=== PATIENT | female | born 1980 | race Caucasian/White ===

== ENCOUNTER 2018-11-14 15:18 | Outpatient (REF) | payer MEDICAID, SELFPAY ==
--- NOTE | 2018-11-14 13:30 | PAPFT_PTH ---
PATIENT: Roberta Pierce V LOC: [facility] U#:[id number] AGE/SX: 38/F ROOM: RE11/14/[address]: Courtney Salas APRN : 1980 BED: DIS: 11/14/2018 SPEC #: [id number] RECD: 11/15/18 12:54 STATUS: CRISTOBAL REAlanis #: [id number] AUBREE: 11/14/18 13:[address]: Courtney Salas DEPT: [facility] Cytology RECD BY: Cristel Gotti Tissues: 1 - CX/ENDOCX FOR PAP SMEARS Procedures: PAP THIN PREP/UVM Screening HPV DNA PROBE Comments: [id number]
== END 2018-11-14 15:38 ==
LOC: LBN 15:18
DX: Z12.4 Encounter for screening for malignant neoplasm of cervix (principal); Z11.51 Encounter for screening for human papillomavirus (HPV)
CPT/HCPCS: 88142; 87624

== ENCOUNTER 2018-11-16 02:09 | Outpatient (CLI) | payer MEDICAID, SELFPAY ==
[2018-11-16 12:14] LABS: ALT 25 U/L (12-78); AST 20 U/L (15-37); Albumin 3.8 g/dL (3.4-5.0); Alkaline Phosphatase 82 U/L (46-116); Anion Gap 6.3 mmol/L (3-11); BUN 10 mg/dL (7-18); Bilirubin, Total 0.3 mg/dL (0.2-1.0); CO2 30.7 mmol/L (21.0-32.0); CREATININE 0.92 mg/dL (0.55-1.02); Chloride 104 mmol/L (98-107); Glucose 89 mg/dL (70-100); Potassium 4.5 mmol/L (3.5-5.1); Sodium 141 mmol/L (136-145); Total Protein 7.2 g/dL (6.4-8.2)
== END 2018-11-16 02:29 ==
DX: J45.909 Unspecified asthma, uncomplicated; F17.200 Nicotine dependence, unspecified, uncomplicated; Z00.00 Encounter for general adult medical examination without abnormal findings
CPT/HCPCS: 36415; 80053

== ENCOUNTER 2020-11-28 02:23 | Outpatient (CLI) | payer MEDICAID, SELFPAY ==
[2020-11-28 11:30] LABS: ALT 23 U/L (14-59); AST 15 U/L (15-37); Albumin 4.1 g/dL (3.4-5.0); Alkaline Phosphatase 78 U/L (46-116); Anion Gap 10.9 mmol/L (3-11); BUN 11 mg/dL (7-18); Bilirubin, Total 0.6 mg/dL (0.2-1.0); CO2 26.1 mmol/L (21.0-32.0); CREATININE 0.8 mg/dL (0.55-1.02); Calcium 9.4 mg/dL (8.5-10.1); Chloride 104 mmol/L (98-107); Glucose 88 mg/dL (74-106); Potassium 4.3 mmol/L (3.5-5.1); Sodium 141 mmol/L (136-145); Total Protein 7.7 g/dL (6.4-8.2)
== END 2020-11-28 02:24 | disposition home or self-care (01) ==
LOC: LBO 02:23
DX: Z00.00 Encounter for general adult medical examination without abnormal findings (principal); Z13.228 Encounter for screening for other metabolic disorders
CPT/HCPCS: 36415; 80053

== ENCOUNTER → 2022-02-24 01:20 | Outpatient (CLI) | payer MEDICAID, SELFPAY ==
--- NOTE | 2022-02-24 07:00 | DI.MAMMO_ITS ---
Exam(s) MAMMO SCREENING EXAM: MAMMO SCREENING CLINICAL HISTORY: screening, Z12.39 TECHNIQUE: Bilateral full field digital CC and MLO mammographic images were obtained with 3D tomosyn thesis and utilizing computer aided detection (CAD). COMPARISON: None. FINDINGS: Masses/Architectural Distortion: None seen. Microcalcifications: No suspicious pleomorphic-type are seen. Skin Thickening/Nipple Retraction: None. IMPRESSION: 1. No significant interval change with no specific features of malignancy noted. 2. Unless there is more urgent need, screening mammography is recommended, as per [employer] [place] guidelines. BI-RADS Category 1 - Negative Breast Density - Category B - Scattered areas of fibroglandular density Breast density category C or D implies that the patient has dense breast tissue. Dense breast tissue is very common and is not abnormal but dense breast tissue can make it harder to find cancer on a ma mmogram. Also, dense breast tissue may increase their breast cancer risk. This information about the result of the mammogram report was provided to the patient to raise their awareness. Use this report when you speak with the patient about their risks for breast cancer, which includes their family hist ory. At that time, you may recommend for more screening tests (Ultrasound or MRI) as they might be us eful based on their risk. A negative radiographic report should not delay biopsy if a dominant or clinically suspicious mass is present. Up to ten percent of cancers are not identified on mammography. A negative report may reinforce clinical impression. Adenosis and dense breasts may obscure an underlying neoplasm. False positive reports average 6 to 10%. Patient will receive a letter notifying them of these results.
== END ==
DX: Z12.31 Encounter for screening mammogram for malignant neoplasm of breast (principal)
CPT/HCPCS: 77063; 77067

== ENCOUNTER 2022-02-25 03:18 | Outpatient (CLI) | payer MEDICAID, SELFPAY ==
[2022-02-25 12:44] LABS: Anion Gap 6.4 mmol/L (3-11); BUN 10 mg/dL (7-18); CO2 26.6 mmol/L (21.0-32.0); CREATININE 0.8 mg/dL (0.55-1.02); Calcium 8.8 mg/dL (8.5-10.1); Chloride 104 mmol/L (98-107); Glucose 91 mg/dL (74-106); Potassium 4.5 mmol/L (3.5-5.1); Sodium 137 mmol/L (136-145)
== END 2022-02-25 03:19 | disposition home or self-care (01) ==
LOC: LOS 03:18
DX: J45.20 Mild intermittent asthma, uncomplicated (principal); Z00.00 Encounter for general adult medical examination without abnormal findings
CPT/HCPCS: 36415; 80048

== ENCOUNTER 2023-03-03 04:16 | Outpatient (CLI) | payer MEDICAID, SELFPAY ==
[2023-03-03 11:33] LABS: ALT 22 U/L (14-59); AST 16 U/L (15-37); Albumin 3.7 g/dL (3.4-5.0); Alkaline Phosphatase 73 U/L (46-116); Anion Gap 9.8 mmol/L (3-11); BUN 11 mg/dL (7-18); Bilirubin, Total 0.5 mg/dL (0.2-1.0); CO2 24.2 mmol/L (21.0-32.0); CREATININE 0.9 mg/dL (0.55-1.02); Calcium 9.1 mg/dL (8.5-10.1); Calculated LDL 82 mg/dL (<100); Chloride 105 mmol/L (98-107); Cholesterol 129 mg/dL (<200); Estimated GFR 82.37 (mL/min/1.73m2); Glucose 90 mg/dL (74-106); HDL Cholesterol 38 mg/dL (40-60); Sodium 139 mmol/L (136-145); Total Protein 7.5 g/dL (6.4-8.2); Triglyceride 48 mg/dL (<150)
[2023-03-04 10:49] LABS: HIV-1/2 Ag & Ab Screen Negative (Negative)
[2023-03-04 11:08] LABS: Hepatitis C Ab w Rflx HCV PCR Negative (Negative)
== END 2023-03-03 04:17 | disposition home or self-care (01) ==
LOC: LOS 04:18
PROVIDERS: PCP Nurse Practitioner Family; Visit Provider Nurse Practitioner Family
DX: Z13.220 Encounter for screening for lipoid disorders (principal); Z11.4 Encounter for screening for human immunodeficiency virus [HIV]; Z11.59 Encounter for screening for other viral diseases
CPT/HCPCS: 36415; 80053; 80061; 86803; 87389

== ENCOUNTER 2024-02-28 10:30 | Outpatient (REF) | payer MEDICAID, SELFPAY ==
--- NOTE | 2024-02-28 09:45 | PAPFT_PTH ---
PATIENT: Roberta Pierce V LOC: [facility] U#:[id number] AGE/SX: 44/F ROOM: RE02/28/[address]: Star Arellano DNP : 1980 BED: DIS: 02/28/2024 SPEC #: [id number] RECD: 02/28/24 13:14 STATUS: CRISTOBAL REAlanis #: [id number] AUBREE: 02/28/24 09:[address]: Star Pascal DEPT: [facility] Cytology RECD BY: Cristel Gotti Tissues: 1 - CX/ENDOCX FOR PAP SMEARS Procedures: PAP THIN PREP/UVM Screening HPV DNA PROBE Comments: [id number] (HPV 16 & 18/45)
== END 2024-02-28 10:31 | disposition home or self-care (01) ==
LOC: LBN 10:30
PROVIDERS: PCP Nurse Practitioner Family; Visit Provider Nurse Practitioner Family
DX: Z12.4 Encounter for screening for malignant neoplasm of cervix (principal)
CPT/HCPCS: 88142; 87624

== ENCOUNTER → 2024-02-29 00:57 | Outpatient (CLI) | payer MEDICAID, SELFPAY ==
--- NOTE | 2024-02-29 06:45 | DI.MAMMO_ITS ---
Exam(s) MAMMO SCREENING EXAM: MAMMO SCREENING CLINICAL HISTORY: screening,Z12.39 TECHNIQUE: Mammograms were interpreted according to the usual protocol including computer analysis w [employer] CAD system, tomosynthesis and C-view imaging. COMPARISON: 2021 FINDINGS: The breasts are composed of scattered fibroglandular densities, Breast Density category B. No suspicious masses or suspicious microcalcifications are seen. No skin thickening or abnormal axillary lymph nodes are seen. There has been no significant change from prior exams. IMPRESSION: BI-RADS Category 1, Negative mammogram Yearly screening mammography is recommended. Breast Density - Category B, scattered fibroglandular densities. A negative radiographic report should not delay biopsy if a dominant or clinically suspicious mass is present. Up to ten percent of cancers are not identified on mammography. A negative report may reinforce clinical impression. Adenosis and dense breasts may obscure an underlying neoplasm. False positive reports average 6 to 10%. Patient will receive a letter notifying them of these results.
== END ==
PROVIDERS: PCP Nurse Practitioner Family; Visit Provider Nurse Practitioner Family
DX: Z12.39 Encounter for other screening for malignant neoplasm of breast (principal)
CPT/HCPCS: 77063; 77067

== ENCOUNTER 2025-03-01 14:27 | Outpatient (REF) | payer MEDICAID, SELFPAY ==
[2025-03-04 12:18] LABS: Chlamydia Result Negative (Negative); GC Result Negative (Negative)
== END 2025-03-01 14:28 | disposition home or self-care (01) ==
LOC: LBN 14:27
PROVIDERS: PCP Nurse Practitioner Family; Visit Provider Obstetrics & Gynecology
DX: Z30.430 Encounter for insertion of intrauterine contraceptive device (principal)
CPT/HCPCS: 87491; 87591

== ENCOUNTER 2025-03-26 11:27 | Outpatient (REF) | payer MEDICAID, SELFPAY ==
--- NOTE | 2025-03-26 11:20 | PAPFT_PTH ---
PATIENT: Roberta Pierce V LOC: [facility] U#:[id number] AGE/SX: 45/F ROOM: RE03/26/[address]: Cathie Armenta DO : 1980 BED: DIS: 03/26/2025 SPEC #: [id number] RECD: 03/26/25 13:08 STATUS: CRISTOBAL RE #: [id number] AURBEE: 03/26/25 11:[address]: Cathie Armenta DEPT: [facility] Cytology RECD BY: Cristel Gotti ENTERED: 03/26/25 13:08 SP TYPE: PAPFT OTHR DR: Star Arellano DNP Tissues: 1 - CX/ENDOCX FOR PAP SMEARS Procedures: PAP THIN PREP/UVM Screening HPV DNA PROBE Comments: [id number] (HPV 16 & 18/45)
== END 2025-03-26 11:28 | disposition home or self-care (01) ==
LOC: LBN 11:27
PROVIDERS: PCP Nurse Practitioner Family; Visit Provider Obstetrics & Gynecology
DX: Z12.4 Encounter for screening for malignant neoplasm of cervix (principal); N76.0 Acute vaginitis
CPT/HCPCS: 88142; 87624